=== PATIENT | male | born 1980 | race Caucasian/White ===

== ENCOUNTER 2017-10-02 15:06 | Emergency (ER) | payer SELFPAY ==
--- NOTE | 2017-10-02 15:43 | EDPHY ---
H & P Time Seen by Provider: 10/02/17 15:42 HPI/ROS: CHIEF COMPLAINT: Syncope HISTORY OF PRESENT ILLNESS: A 36-year-old man with type 2 diabetes brought in by EMS for syncope. He said he started feeling lightheaded at work around 11: 30 a.m.. When he was walking back to his office he felt lightheaded and dizzy, fainted, and then he was looking up at the ceiling. He presents in a C-collar with a headache and upper neck pain as well as low back pain. He denies chest pain or shortness of breath or weakness or numbness in extremities. Syncope was not associated with vertigo or severe headache as preceding symptoms. REVIEW OF SYSTEMS: Eye: no change in vision ENT: no sore throat Cardiac: No chest pain Pulmonary: no cough or SOB Abdomen: no vomiting, diarrhea, abdominal pain Musculoskeletal: HPI Skin: no rash Neuro: No weakness or numbness in extremities, now has a headache where he hit his head on the ground occipitally. Constitutional: no fever : no urinary symptoms A comprehensive 10 point review of systems is otherwise negative aside from elements mentioned in the history of present illness. 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 Eyes: No scleral icterus. ENT, Mouth: Normal mucous membranes. Respiratory: Normal respiratory effort, breath sounds equal, lungs are clear to auscultation. Cardiovascular: Regular rate and rhythm. Gastrointestinal: Abdomen is soft and non tender. Neurological: Alert, face symmetric, normal motor and sensory in extremities. Speech fluent. 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 Lift each leg independently off the bed. Skin: Warm and dry, no rashes. Musculoskeletal: Upper cervical spine tenderness and lower lumbar tenderness. No thoracic spine tenderness. No extremity bony tenderness and hips are nontender with rotation or axial loading. Psychiatric: Not agitated. Emergency Department course/MDM: Remains in a C-collar. Labs to include chemistry and troponin, EKG, head and cervical spine CT as the patient fails nexus criteria on arrival. Lumbar spine and pelvis x-rays. 1720: Head and cervical spine CT negative per Dr. Jeffery. Cervical spine is cleared clinically at this time. Lumbar spine x-ray negative for me. Most likely was lightheaded all day because he was hyperglycemic and dehydrated. 10 units IV insulin and 2 L IV normal saline ordered. 1836: Repeat glucose is 175, ambulatory, stable for discharge. I think that malignant dysrhythmia or seizure, acute stroke are all unlikely. Smoking Status: Light smoker Constitutional: Initial Vital Signs Temperature (C) 36.9 C 10/02/17 15:19 Heart Rate 103 H 10/02/17 15:19 Respiratory Rate 22 H 10/02/17 15:19 Blood Pressure 130/98 H 10/02/17 15:19 O2 Sat (%) 93 10/02/17 15:19 O2 Delivery Mode Room Air O2 (L/minute) 2 Allergies/Adverse Reactions: Sulfa (Sulfonamide Antibiotics) Allergy (Verified 10/02/17 15:22) Home Medications: Medication Instructions Recorded Metformin HCl 10/02/17 Medical Decision Making - Diagnostics EKG Interpretation: 12-lead EKG interpreted by me; official reading is in trace master. My interpretation is sinus rhythm rate 97 with borderline left axis. Imaging Results: Imaging Impressions Cervical Spine CT 10/02/17 15:50 Impression: Negative noncontrast CT of the head with no intracranial bleed identified. CT Cervical Spine Without Contrast History: Trauma. Technique: Multislice helical CT through the cervical spine without contrast from the skull base to T1. Soft tissue and bone evaluation is performed. Sagittal and coronal reconstructions are obtained and reviewed. Dose reduction techniques were utilized. Findings: Cervical alignment is anatomic. No fracture or dislocation is identified. The relationship between skull base and C1 is normal. The C1-C2 articulation is normal. The odontoid process is normal. Disk spaces maintain their normal height. The cervical thoracic junction is normal. Soft tissue window evaluation does not show evidence of epidural or prevertebral hematoma. Impression: Negative for fracture. Results called and discussed with ISIS FINNEGAN M.D. on 10/02/2017 at 17:19. Head CT 10/02/17 15:50 Impression: Negative noncontrast CT of the head with no intracranial bleed identified. CT Cervical Spine Without Contrast History: Trauma. Technique: Multislice helical CT through the cervical spine without contrast from the skull base to T1. Soft tissue and bone evaluation is performed. Sagittal and coronal reconstructions are obtained and reviewed. Dose reduction techniques were utilized. Findings: Cervical alignment is anatomic. No fracture or dislocation is identified. The relationship between skull base and C1 is normal. The C1-C2 articulation is normal. The odontoid process is normal. Disk spaces maintain their normal height. The cervical thoracic junction is normal. Soft tissue window evaluation does not show evidence of epidural or prevertebral hematoma. Impression: Negative for fracture. Results called and discussed with ISIS FINNEGAN M.D. on 10/02/2017 at 17:19. Lumbar Spine X-Ray 10/02/17 15:50 Impression: Negative for fracture. Pelvis X-Ray 10/02/17 15:50 Impression: Negative for fracture. Imaging: Discussed imaging studies w/ central office mechanic Radiologist Differential Diagnosis: Differential diagnosis considered for syncope including but not limited to vasovagal syncope, arrhythmia, dehydration, and blood loss. - Data Points Laboratory Results: Laboratory Results 10/02/17 16:01 10/02/17 16:01 10/02/17 10/02/17 10/02/17 18:33 16:03 16:01 WBC RBC Hgb POC Hgb Hct POC Hct MCV MCH MCHC RDW Plt Count MPV Neut % (Auto) Lymph % (Auto) [place] % (Auto) Eos % (Auto) Baso % (Auto) Nucleat RBC Rel Count Absolute Neuts (auto) Absolute Lymphs (auto) Absolute Monos (auto) Absolute Eos (auto) Absolute Basos (auto) Absolute Nucleated RBC Immature Gran % Immature Gran # POC Sodium Sodium 134 mEq/L L mEq/L (135-145) POC Potassium Potassium 3.7 mEq/L mEq/L (3.3-5.0) POC Chloride Chloride 100 mEq/L mEq/L (97-110) Carbon Dioxide 22 mEq/l mEq/l (22-31) Anion Gap 12 mEq/L mEq/L (8-16) POC BUN BUN 14 mg/dL mg/dL (7-23) Creatinine 0.7 mg/dL mg/dL (0.7-1.3) POC Creatinine Estimated GFR > 60 Glucose 385 mg/dL H mg/dL (70-100) POC Glucose 175 mg/dL H mg/dL (70-100) Calcium 9.8 mg/dL mg/dL (8.5-10.4) POC Troponin I 0.00 ng/mL ng/mL (0.00-0.08) 10/02/17 10/02/17 16:01 15:17 WBC 13.11 10^3/uL H 10^3/uL (3.80-9.50) RBC 5.38 10^6/uL 10^6/uL (4.40-6.38) Hgb 16.7 g/dL g/dL (13.7-17.5) POC Hgb 17.7 gm/dL H gm/dL (13.7-17.5) Hct 49.2 % % (40.0-51.0) POC Hct 52 % H % (40-51) MCV 91.4 fL fL (81.5-99.8) MCH 31.0 pg pg (27.9-34.1) MCHC 33.9 g/dL g/dL (32.4-36.7) RDW 12.5 % % (11.5-15.2) Plt Count 265 10^3/uL 10^3/uL (150-400) MPV 9.8 fL fL (8.7-11.7) Neut % (Auto) 62.9 % % (39.3-74.2) Lymph % (Auto) 29.9 % % (15.0-45.0) [place] % (Auto) 5.7 % % (4.5-13.0) Eos % (Auto) 0.6 % % (0.6-7.6) Baso % (Auto) 0.5 % % (0.3-1.7) Nucleat RBC Rel Count 0.0 % % (0.0-0.2) Absolute Neuts (auto) 8.25 10^3/uL H 10^3/uL (1.70-6.50) Absolute Lymphs (auto) 3.92 10^3/uL H 10^3/uL (1.00-3.00) Absolute Monos (auto) 0.75 10^3/uL 10^3/uL (0.30-0.80) Absolute Eos (auto) 0.08 10^3/uL 10^3/uL (0.03-0.40) Absolute Basos (auto) 0.06 10^3/uL 10^3/uL (0.02-0.10) Absolute Nucleated RBC 0.00 10^3/uL 10^3/uL (0-0.01) Immature Gran % 0.4 % % (0.0-1.1) Immature Gran # 0.05 10^3/uL 10^3/uL (0.00-0.10) POC Sodium 137 mEq/L mEq/L (135-145) Sodium POC Potassium 3.3 mEq/L mEq/L (3.3-5.0) Potassium POC Chloride 97 mEq/L mEq/L (97-110) Chloride Carbon Dioxide Anion Gap POC BUN 14 mg/dL mg/dL (7-23) BUN Creatinine POC Creatinine 0.7 mg/dL mg/dL (0.7-1.3) Estimated GFR Glucose POC Glucose 392 mg/dL H mg/dL (70-100) Calcium POC Troponin I Medications Given: Discontinued Medications Fentanyl (Sublimaze) 100 mcg IVP EDNOW ONE Stop: 10/02/17 16:08 Last Admin: 10/02/17 16:24 Dose: 100 mcg Sodium Chloride (Ns) 1,000 mls @ 0 mls/hr IV EDNOW ONE; Wide Open PRN Reason: Protocol Stop: 10/02/17 16:44 Last Admin: 10/02/17 17:31 Dose: 1,000 mls Sodium Chloride (Ns) 1,000 mls @ 0 mls/hr IV EDNOW ONE; Wide Open PRN Reason: Protocol Stop: 10/02/17 17:18 Last Admin: 10/02/17 18:03 Dose: 1,000 mls Insulin Human Regular (Humulin R) 10 unit IVP EDNOW ONE Stop: 10/02/17 17:18 Last Admin: 10/02/17 17:31 Dose: 10 units Ondansetron HCl (Zofran) 4 mg IVP EDNOW ONE Stop: 10/02/17 16:08 Last Admin: 10/02/17 16:24 Dose: 4 mg Point of Care Test Results: Chemistry 10/02/17 10/02/17 10/02/17 18:33 16:03 15:17 POC Sodium 137 mEq/L mEq/L (135-145) POC Potassium 3.3 mEq/L mEq/L (3.3-5.0) POC Chloride 97 mEq/L mEq/L (97-110) POC BUN 14 mg/dL mg/dL (7-23) POC Creatinine 0.7 mg/dL mg/dL (0.7-1.3) POC Glucose 175 mg/dL H mg/dL 392 mg/dL H mg/dL (70-100) (70-100) POC Troponin I 0.00 ng/mL ng/mL (0.00-0.08) ISTAT H&H 10/02/17 15:17 POC Hgb 17.7 gm/dL H gm/dL (13.7-17.5) POC Hct 52 % H % (40-51) Departure - Departure Disposition: Home, Routine, Self-Care Clinical Impression: Dehydration, Hyperglycemia Syncope Qualifiers: Syncope type: unspecified Qualified Code(s): R55 - Syncope and collapse Condition: Good Instructions: Syncope (ED) Additional Instructions: Last glucose in the ED was 175 Referrals: Patient,NotPresent [Unknown] - As per Instructions (Call Dr. Barraza your PCP on Wednesday to followup.)
--- NOTE | 2017-10-02 15:54 | CPEKG ---
Heart Rate: 97 RR Interval: 619 P-R Interval: 172 QRSD Interval: 100 QT Interval: 368 QTC Interval: 468 P [place]: 42 QRS [place]: -16 T Wave [place]: 67 EKG Severity - OTHERWISE NORMAL ECG - EKG Impression: SINUS RHYTHM EKG Impression: BORDERLINE LEFT AXIS DEVIATION Electronically Signed By: Ortega Marrero 02-Oct-2017 15:55:12
[2017-10-02] MEDS ORDERED: fentaNYL 100 MCG/2 ML INJ IVP ONE (16:07)
[2017-10-02] MEDS ORDERED: ONDANSETRON 4 MG/2 ML VIAL IVP ONE (16:07)
[2017-10-02 16:11] LABS: PLATELET COUNT 265 10^3/uL (150-400)
[2017-10-02] MEDS ORDERED: NS 1,000 ML IV ONE ×2 (16:43→17:17)
[2017-10-02] MEDS ORDERED: INSULIN REGULAR HUMAN 100 UNIT/ML UNIT IVP ONE (17:17)
[2017-10-02 18:43] VITALS: BP 135/80
== END 2017-10-02 18:43 | disposition home or self-care (01) ==
DX: R55 Syncope and collapse (principal); E86.0 Dehydration; E11.65 Type 2 diabetes mellitus with hyperglycemia; E86.9 Volume depletion, unspecified; F17.200 Nicotine dependence, unspecified, uncomplicated; Z79.84 Long term (current) use of oral hypoglycemic drugs
CPT/HCPCS: 82435-PO; 82565-PO; 82947-PO; 84132-PO; 84295-PO; 84484-PO; 84520-PO; 85014-PO; 96374; J1815; J2405; J3010